=== PATIENT | female | born 1955 | race Caucasian/White ===

== ENCOUNTER 2020-01-23 07:09 | Inpatient (IN) | payer MEDICAID ==
[~2020-01-23] VITALS: Ht 154.9 cm; Wt 80.9 kg
[2020-01-23 07:51] LABS: BASOPHILS % (AUTO) 0.6 % (0-1); EOSINOPHILS # (AUTO) 0.1 X10'3 (0-0.9); EOSINOPHILS % (AUTO) 1.4 % (0-6); HEMATOCRIT 40.7 % (35.0-45.0); HEMOGLOBIN 14.1 g/dl (12.0-16.0); LYMPHOCYTES # (AUTO) 1.4 X10'3 (1.1-4.8); LYMPHOCYTES % (AUTO) 20.8 % (21-51); MEAN CORPUSCULAR HEMOGLOBIN 29.5 PG (27.0-31.0); MEAN CORPUSCULAR HGB CONC 34.7 g/dL (33.0-36.5); MEAN PLATELET VOLUME 6.6 FL (7.4-10.4); MONOCYTES # (AUTO) 0.5 X10'3 (0-0.9); MONOCYTES % (AUTO) 6.9 % (2-12); NEUTROPHILS # (AUTO) 4.9 X10'3 (1.8-7.7); NEUTROPHILS % (AUTO) 70.3 % (42-75); PLATELET COUNT 577 X10'3 (140-440); RED BLOOD COUNT 4.79 X10'6 (4.20-5.60); RED CELL DISTRIBUTION WIDTH 14.3 % (11.5-14.5)
[2020-01-23] MEDS ORDERED: ondansetron/PF 4mg/2ml inj IV ONE (08:00)
[2020-01-23] MEDS ORDERED: pantoprazole 40 MG vial IV ONE (08:00)
[2020-01-23] MEDS ORDERED: normal saline 1000ML IV soln IVB ONE (08:00)
[2020-01-23 08:09] LABS: ALANINE AMINOTRANSFERASE 58 U/L (12-78); ALBUMIN 2.8 G/DL (3.4-5.0); ALBUMIN/GLOBULIN RATIO 0.7 (1.1-1.5); ALKALINE PHOSPHATASE 174 IU/L (46-116); ANION GAP 9 (8-16); ASPARTATE AMINO TRANSFERASE 22 U/L (10-37); BILIRUBIN,TOTAL 0.4 MG/DL (0.1-1.0); BLOOD UREA NITROGEN 12 MG/DL (7-18); CALCIUM 8.8 MG/DL (8.5-10.1); CHLORIDE 99 MMOL/L (99-107); CREATININE 0.92 MG/DL (0.40-0.90); GLUCOSE 111 MG/DL (70-104); SODIUM 135 MMOL/L (135-145); TOTAL CARBON DIOXIDE 26.6 MMOL/L (24-32); TOTAL PROTEIN 6.9 G/DL (6.4-8.2); eGFR 62 ML/MIN
[2020-01-23 08:35] LABS: LIPASE 654 U/L (73-393)
--- NOTE | 2020-01-23 09:24 | NUR ---
PT AMBULATORY TO BATHROOM WITH STANDBY ASSIST OF RN STUDENT TO PROVIDE URINE SAMPLE. WILL SEND TO LAB UPON RETURN TO BED 06
[2020-01-23 10:01] LABS: CLARITY,URINE CLEAR (Clear); COLOR,URINE YELLOW (Yellow); GLUCOSE, URINE NEGATIVE (Neg); KETONES,URINE 15 mg/dl (Neg); LEUKOCYTE ESTERASE ,URINE NEGATIVE (Neg); NITRITES, URINE NEGATIVE (Neg); OCCULT BLOOD,URINE TRACE-INTACT (Neg); PROTEIN,URINE NEGATIVE (Neg); UROBILINOGEN,URINE 0.2 E.U/dL (0.2-1.0)
[2020-01-23 10:02] LABS: UA COLLECTION TYPE CLN CATCH MIDSTREAM
[2020-01-23] MEDS ORDERED: aspirin 81mg tab.chew PO ONE (10:05)
[2020-01-23] MEDS ORDERED: potassium Cl 10 mEq/100mL bag IV ONE (10:05)
[2020-01-23] MEDS ORDERED: nitroGLYCERIN 0.4mg/hour patch TD ONE (10:05)
[2020-01-23 10:07] LABS: BACTERIA,URINE FEW /HPF (Neg); RBC,URINE 0-2 /HPF (0-2); SQUAMOUS EPITHELIAL CELL,UR FEW /LPF (FEW); WBC,URINE 0-4 /HPF (0-4)
[2020-01-23] MEDS ORDERED: magnesium hydroxide 30ml (MOM) UD suspension PO PRN (10:35)
[2020-01-23] MEDS ORDERED: morphine 2 MG/ML inj. syringe IV PRN (10:35)
[2020-01-23] MEDS ORDERED: mag hydrox/Alum hydrox/simeth 30ml oral suspension PO PRN (10:35)
[2020-01-23] MEDS: normal saline 1000ml 1,000 ML IV SCH ×2 (10:43→20:35)
[2020-01-23] MEDS: acetaminophen 325mg tablet PO PRN (10:50)
--- NOTE | 2020-01-23 11:40 | NUR ---
CALLED INTO PT'S ROOM..... PT. ASKING FOR AN OMSBUDSMAN.... I EXPLAINED TO HER THAT WAS FOR [facility] AND [facility]UTE CARE DID NOT HAVE ONE. CAME INTO THE ROOM PT. IS TELLING ME HOW UP SET SHE WAS BECAUSE "THERE WAS A MAN YELLING FOR THE [facility]ANISHA DOCTOR". [facility] F[facility] PT. ACTING OUT} PT. IS UPSET BECAUSE A MAN IN BLACK STOOD AT HER DOOR, AND THEY HAD NO RIGHT TO DO THAT. I EXPLAINED TO HER THAT WE HAD A PT. THAT WAS ACTING OUT AND IT WAS THERE JOB TO MAKE SURE THAT PT. DID NOT HARM ANY OTHER PT'S AND THATS WHY THEY WERE STANDING AT THE DOOR, BECAUSE THAT PT. HAD TO GO BY HER ROOM TO GET TO THE BATHROOM'. PT. SEEMS CONFUSED ON WHO WAS AT HER ROOM, WHO WAS SAYING WHAT DOING AN ISSUE IN THE [place]. PT. STATES SHE CAN NOT SEE WITHOUT HERE GLASSES AND STATES SHE IS UN HAPPY WITH THE WHOLE THING AND SHE DID NOT LIKE THE WAY IT WAS HANDLED. SHE STATES THAT SHE IS HERE FOR A HEART CONDITION AND THIS WHOLE THING HAS UP SET HER..... I ASKED THE PT. IF SHE WOULD LIKE TO TALK TO SOMEONE FROM ADMINISTRATION? SHE DECLINED. I CLOSED THE DOOR TO HER ROOM AND APOLOGIZED FOR THE DISTURBANCE.
[2020-01-23] MEDS ORDERED: BUPR150T6 PO (11:43)
[2020-01-23] MEDS ORDERED: HYDR30CR99 TOP (11:43)
[2020-01-23] MEDS ORDERED: LEVO150T8 PO (11:43)
[2020-01-23] MEDS ORDERED: ATOR10TA70 PO (11:43)
[2020-01-23] MEDS: morphine 2 MG/ML inj. syringe IV PRN ×3 (11:50→21:41)
--- NOTE | 2020-01-23 13:37 | NUR ---
PT SITTING UP EAT LUNCH TRAY
--- NOTE | 2020-01-23 14:19 | NUR ---
Patient in room ED 6. I have received report from Bess DAVIDSON and had the opportunity to ask questions and assume patient care. Awaiting patient's arrival to the unit.
--- NOTE | 2020-01-23 16:58 | NUR ---
Page sent to Dr. Sanz: PAGER ID: [phone] MESSAGE: [phone] Leti Morrow: Sorry to bother you, can she have something for anxiety? She is also requesting something other than Maalox for her GERD. Thanks, Mona [phone]
--- NOTE | 2020-01-23 16:58 | NUR ---
Page sent to Dr. Sanz PAGER ID: [phone] MESSAGE: [id number] Leti Morrow: Patient's K is 3.0. Can we start her on replacement protocol? Thanks, Mona [phone]
[2020-01-23] MEDS ORDERED: heparin 10,000 units/1 ML INJ IV ONE (17:00)
[2020-01-23] MEDS ORDERED: heparin 10,000 units/1 ML INJ IV PRN (17:00)
[2020-01-23] MEDS ORDERED: potassium Cl 20 mEq SR tablet PO PRN (17:05)
[2020-01-23] MEDS ORDERED: potassium CL 10mEq/100ml bag 100 ML IV PRN (17:05)
[2020-01-23] MEDS: pantoprazole 40mg Tablet.DR PO SCH (17:33)
[2020-01-23] MEDS: LORazepam 2 mg/ml vial IV PRN ×2 (17:33→23:26)
[2020-01-23] MEDS: potassium Cl 20 mEq SR tablet PO PRN ×2 (17:33→23:26)
[2020-01-23] MEDS: heparin 25,000 UNIT/250ml bag 250 ML IV SCH (17:42)
[2020-01-23 17:47] LABS: BASOPHILS # (AUTO) 0.1 X10'3 (0-0.2); BASOPHILS % (AUTO) 0.6 % (0-1); EOSINOPHILS # (AUTO) 0.2 X10'3 (0-0.9); EOSINOPHILS % (AUTO) 1.7 % (0-6); HEMATOCRIT 35.6 % (35.0-45.0); HEMOGLOBIN 12.2 g/dl (12.0-16.0); LYMPHOCYTES # (AUTO) 2.1 X10'3 (1.1-4.8); MEAN CORPUSCULAR HEMOGLOBIN 29.7 PG (27.0-31.0); MEAN CORPUSCULAR HGB CONC 34.4 g/dL (33.0-36.5); MEAN CORPUSCULAR VOLUME 86.3 FL (78-98); MEAN PLATELET VOLUME 6.5 FL (7.4-10.4); MONOCYTES # (AUTO) 0.6 X10'3 (0-0.9); MONOCYTES % (AUTO) 6.8 % (2-12); NEUTROPHILS # (AUTO) 6.1 X10'3 (1.8-7.7); NEUTROPHILS % (AUTO) 67.9 % (42-75); PLATELET COUNT 495 X10'3 (140-440); RED BLOOD COUNT 4.12 X10'6 (4.20-5.60); RED CELL DISTRIBUTION WIDTH 14.1 % (11.5-14.5)
[2020-01-23] MEDS: K and/or MAG REPLACEMENT MC SCH ×2 (17:53→20:00)
[2020-01-23 17:55] LABS: PARTIAL THROMBOPLASTIN TIME 35 SECONDS (22-32)
[2020-01-23 18:00] VITALS: BP 118/65
--- NOTE | 2020-01-23 18:00 | NUR ---
Patient in room PCU 3027. I have received report from Mona DAVIDSON and had the opportunity to ask questions and assume patient care.
[2020-01-23] MEDS ORDERED: regadenoson 0.4mg/5ml syringe IV PRN (18:20)
[2020-01-23] MEDS ORDERED: nitroGLYCERIN 0.4mg SUBLingual tab SL PRN (18:20)
[2020-01-23] MEDS ORDERED: metoprolol tartrate 1mg/ml inj IV PRN (18:20)
[2020-01-23] MEDS ORDERED: aminophylline 250mg/10ml inj. IV PRN (18:20)
--- NOTE | 2020-01-23 18:31 | NUR ---
Problems reprioritized. Patient report given, questions answered & plan of care reviewed with Facundo RN.
[2020-01-23] MEDS: ondansetron/PF 4mg/2ml inj IV PRN (18:50)
[2020-01-23] MEDS: carVEDilol 3.125mg tablet PO SCH (21:41)
[2020-01-23 22:00] VITALS: BP 120/81
[2020-01-24] VITALS (19 sets, daily range): BP systolic 103–150; BP diastolic 57–88
[2020-01-24] MEDS: morphine 2 MG/ML inj. syringe IV PRN ×3 (02:02→23:06)
[2020-01-24] MEDS: normal saline 1000ml 1,000 ML IV SCH ×2 (04:30→16:35)
[2020-01-24] MEDS: potassium Cl 20 mEq SR tablet PO PRN (04:31)
--- NOTE | 2020-01-24 06:18 | NUR ---
Patient in room PCU 3027. I have received report from LETY Loredo and had the opportunity to ask questions and assume patient care.
--- NOTE | 2020-01-24 06:21 | NUR ---
Problems reprioritized. Patient report given, questions answered & plan of care reviewed with Lauren DAVIDSON.
--- NOTE | 2020-01-24 06:26 | NUR ---
Problems reprioritized. Patient report given, questions answered & plan of care reviewed with Shey DAVIDSON.
[2020-01-24 06:33] LABS: BASOPHILS % (AUTO) 0.5 % (0-1); EOSINOPHILS # (AUTO) 0.2 X10'3 (0-0.9); EOSINOPHILS % (AUTO) 1.9 % (0-6); HEMATOCRIT 33.9 % (35.0-45.0); HEMOGLOBIN 11.5 g/dl (12.0-16.0); LYMPHOCYTES # (AUTO) 1.7 X10'3 (1.1-4.8); LYMPHOCYTES % (AUTO) 19.5 % (21-51); MEAN CORPUSCULAR HEMOGLOBIN 29.4 PG (27.0-31.0); MEAN CORPUSCULAR VOLUME 86.3 FL (78-98); MEAN PLATELET VOLUME 6.8 FL (7.4-10.4); MONOCYTES # (AUTO) 0.5 X10'3 (0-0.9); NEUTROPHILS # (AUTO) 6.2 X10'3 (1.8-7.7); NEUTROPHILS % (AUTO) 72.1 % (42-75); PLATELET COUNT 464 X10'3 (140-440); RED BLOOD COUNT 3.93 X10'6 (4.20-5.60); RED CELL DISTRIBUTION WIDTH 14.2 % (11.5-14.5); WHITE BLOOD COUNT 8.6 X10'3 (4.5-11.0)
[2020-01-24 06:48] LABS: ALBUMIN 2.4 G/DL (3.4-5.0); ANION GAP 6 (8-16); BLOOD UREA NITROGEN 9 MG/DL (7-18); BUN/CREATININE RATIO 11.5 (6.6-38.0); CALCIUM 8.1 MG/DL (8.5-10.1); CHLORIDE 108 MMOL/L (99-107); CREATININE 0.78 MG/DL (0.40-0.90); GLUCOSE 124 MG/DL (70-104); MAGNESIUM 2.1 MG/DL (1.5-2.4); POTASSIUM 3.7 MMOL/L (3.5-5.1); SODIUM 140 MMOL/L (135-145); eGFR 75 ML/MIN
--- NOTE | 2020-01-24 07:19 | NUR ---
PAGER ID: [phone] MESSAGE: [id number]: Leti Carney: Pt 12hr trop was 0.08 trending upward. Would you like another level drawn? Would you like for pt to continue to go to stress test? Kindly advise! -Lauren [phone]
--- NOTE | 2020-01-24 07:38 | NUR ---
Per Yvon, continue with stress test as per previous page
[2020-01-24] MEDS: aspirin 81mg tablet.DR PO SCH (07:42)
[2020-01-24] MEDS: atorvastatin 20mg tablet PO SCH (07:43)
[2020-01-24] MEDS: pantoprazole 40mg Tablet.DR PO SCH (07:43)
[2020-01-24] MEDS: K and/or MAG REPLACEMENT MC SCH ×2 (07:43→19:21)
[2020-01-24] MEDS: heparin 25,000 UNIT/250ml bag 250 ML IV SCH (07:57)
[2020-01-24] MEDS: ondansetron/PF 4mg/2ml inj IV PRN ×2 (08:16→22:41)
[2020-01-24] MEDS: carVEDilol 3.125mg tablet PO SCH ×2 (13:27→19:21)
--- NOTE | 2020-01-24 18:25 | NUR ---
Patient in room PCU 3027. I have received report from Lauren DAVIDSON and had the opportunity to ask questions and assume patient care.
[2020-01-25 02:00] VITALS: BP 104/64
[2020-01-25] MEDS: normal saline 1000ml 1,000 ML IV SCH ×2 (02:35→10:31)
[2020-01-25] MEDS: morphine 2 MG/ML inj. syringe IV PRN (04:12)
[2020-01-25 05:30] LABS: BASOPHILS # (AUTO) 0.1 X10'3 (0-0.2); BASOPHILS % (AUTO) 0.7 % (0-1); EOSINOPHILS # (AUTO) 0.2 X10'3 (0-0.9); EOSINOPHILS % (AUTO) 2.6 % (0-6); HEMATOCRIT 32.2 % (35.0-45.0); HEMOGLOBIN 11.4 g/dl (12.0-16.0); LYMPHOCYTES # (AUTO) 1.6 X10'3 (1.1-4.8); LYMPHOCYTES % (AUTO) 22.4 % (21-51); MEAN CORPUSCULAR HEMOGLOBIN 30.8 PG (27.0-31.0); MEAN CORPUSCULAR HGB CONC 35.5 g/dL (33.0-36.5); MEAN CORPUSCULAR VOLUME 86.6 FL (78-98); MEAN PLATELET VOLUME 6.8 FL (7.4-10.4); MONOCYTES # (AUTO) 0.5 X10'3 (0-0.9); MONOCYTES % (AUTO) 7.2 % (2-12); NEUTROPHILS # (AUTO) 4.9 X10'3 (1.8-7.7); NEUTROPHILS % (AUTO) 67.1 % (42-75); PLATELET COUNT 439 X10'3 (140-440); RED BLOOD COUNT 3.71 X10'6 (4.20-5.60); RED CELL DISTRIBUTION WIDTH 14.5 % (11.5-14.5); WHITE BLOOD COUNT 7.3 X10'3 (4.5-11.0)
[2020-01-25 05:32] LABS: ALBUMIN 2.4 G/DL (3.4-5.0); ANION GAP 8 (8-16); BLOOD UREA NITROGEN 5 MG/DL (7-18); BUN/CREATININE RATIO 6.7 (6.6-38.0); CALCIUM 8.4 MG/DL (8.5-10.1); CHLORIDE 107 MMOL/L (99-107); CREATININE 0.75 MG/DL (0.40-0.90); GLUCOSE 113 MG/DL (70-104); MAGNESIUM 2.1 MG/DL (1.5-2.4); POTASSIUM 3.7 MMOL/L (3.5-5.1); SODIUM 139 MMOL/L (135-145); TOTAL CARBON DIOXIDE 24.4 MMOL/L (24-32); eGFR 78 ML/MIN
[2020-01-25 06:00] VITALS: BP 117/73
--- NOTE | 2020-01-25 06:23 | NUR ---
Problems reprioritized. Patient report given, questions answered & plan of care reviewed with Sherrell DAVIDSON.
[2020-01-25] MEDS: K and/or MAG REPLACEMENT MC SCH ×2 (07:21→08:00)
[2020-01-25] MEDS: pantoprazole 40mg Tablet.DR PO SCH ×2 (08:33→08:42)
[2020-01-25] MEDS: acetaminophen 325mg tablet PO PRN (08:42)
[2020-01-25] MEDS: carVEDilol 3.125mg tablet PO SCH (08:42)
[2020-01-25] MEDS: aspirin 81mg tablet.DR PO SCH (08:42)
[2020-01-25] MEDS: atorvastatin 20mg tablet PO SCH (08:42)
[2020-01-25 10:30] VITALS: BP 119/83
--- NOTE | 2020-01-25 10:30 | NUR ---
Discharge home: All belonging, to transport, able to ambulate from WC to vehicle. Discharge instructions: written and oral review. 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 Pt. is encouraged to Set an appointment with [facility] for a follow up. She is highly encouraged to seek a Dumpcart Driver for follow up needs. Pt. plans to try asking for assistance through her primary care clinic.
== END 2020-01-25 11:56 | disposition home or self-care (01) | DRG 203 ==
LOC: ER 07:09 → ED HOLD 10:35 → PCU 3S 15:20
PROVIDERS: ADMIT Family Medicine; ATTEND Family Medicine
PROC: 4A02XM4 Measurement of Cardiac Total Activity, External Approach (ICD-10-PCS; principal; 2020-01-24)
PROC: 3E033HZ Introduction of Radioactive Substance into Peripheral Vein, Percutaneous Approach (ICD-10-PCS; 2020-01-24)
DX: R07.89 Other chest pain (principal); K85.90 Acute pancreatitis without necrosis or infection, unspecified; E44.0 Moderate protein-calorie malnutrition; E03.9 Hypothyroidism, unspecified; E87.6 Hypokalemia; F41.9 Anxiety disorder, unspecified; Z87.442 Personal history of urinary calculi; Z68.33 Body mass index [BMI] 33.0-33.9, adult
CPT/HCPCS: 36415; 71045; 78452; 80048; 80053; 81001; 83690; 83735; 84443; 84484; 85025; 85610; 85730; 93005; 93017; 96361; 96374; 99285; A9500; C9113; G0378; J0280; J1644; J2060; J2270; J2405; J2785; J3480; J7030